=== PATIENT | female | born 1940 | race Caucasian/White ===

== ENCOUNTER 2018-10-02 12:50 | Inpatient (IN) ==
[2018-10-02 16:05] LABS: Basophils # 0.1 10*3/uL (0.0-0.2); Basophils % 0.7 % (0.0-0.8); Eosinophils # 0.2 10*3/uL (0.0-0.87); Eosinophils % 3.3 % (0.00-10.9); Hematocrit 27.3 VOL% (35.7-47.0); Hemoglobin 8.7 GM/DL (12.0-16.0); Immature Granulocytes % 0.4 %; Immature Granulocytes Absolute 0.03 #; Lymphocytes # 1.3 10*3/uL (1.4-4.0); Lymphocytes % 17.7 % (21.3-54.2); Mean Corpuscular HGB Conc 31.9 GM/DL (32-36); Mean Corpuscular Volume 91.9 FL (87-102); Mean Platelet Volume 9.4 FL (9.6-12.0); Monocytes % 11.7 % (1.7-12.7); Neutrophils % 66.2 % (38.7-73.9); Platelet Count 428 T/CUMM (130-400); Red Blood Count 2.97 MC/CUMM (3.8-5.5); Red Cell Distribution Width 15.7 % (9.3-17.3); White Blood Count 7.2 T/CUMM (4-12)
[2018-10-02 16:23] LABS: Alanine Aminotransferase 16 U/L (13-56); Albumin 2.6 G/DL (3.4-5.0); Alkaline Phosphatase 66 U/L (45-117); Aspartate Amino Transferase 22 U/L (0-37); Bilirubin,Total < 0.39 MG/DL (0.2-1.0); Blood Urea Nitrogen 20 MG/DL (7-18); Glucose 90 MG/DL (74-106); Total Protein 7.5 G/DL (6.4-8.3)
[2018-10-02 19:29] LABS: Apearance,Urine CLEAR (Clear); Bilirubin,Urine Negative (Negative); Blood, Urine Negative (Negative); Glucose,Urine (UA) Negative (Negative); Hyaline Casts,Urine 1 /LPF (0-3); Ketones,Urine Negative (Negative); Mucus,Urine Occasional /LPF (Occasional); Nitrite,Urine Negative (Negative); Protein,Urine Negative; RBC,Urine <1 /HPF (0-4); Squamous Epithelial Cell,Urine Occasional /HPF (0-10); Urine Color Yellow (Yellow); Urine Specific Gravity 1.013 (1.001-1.035); Urine Urobilinogen < 2.0 EU/DL (0.2-1.0); WBC,Urine 1 /HPF (0-6)
[2018-10-02] MEDS ORDERED: traZODone 50 MG TABLET PO PRN (19:56)
[2018-10-02] MEDS ORDERED: diphenhydrAMINE CAP 25 MG CAPSULE PO PRN (19:56)
[2018-10-02] MEDS ORDERED: DOCUSATE SODIUM 100 MG CAPSULE PO PRN (19:56)
[2018-10-02] MEDS ORDERED: ONDANSETRON 4 MG/2 ML VIAL IV PRN (19:56)
[2018-10-02] MEDS ORDERED: ATORVASTATIN 20 MG TABLET PO SCH (20:30)
[2018-10-02] MEDS ORDERED: ENOXAPARIN 40 MG/0.4 ML SYRINGE SUBCUT SCH (21:00)
[2018-10-02] MEDS ORDERED: KETOROLAC 30 MG/1 ML VIAL ONE (21:14)
[2018-10-02] MEDS: KETOROLAC 15 MG/1 ML VIAL IV PRN (21:17)
[2018-10-02] MEDS: SODIUM CHLORIDE 0.9% 1,000 ML IV SCH (23:35)
[2018-10-02] MEDS: MELOXICAM 7.5 MG TABLET PO SCH (23:52)
[2018-10-02] MEDS: POLYCARBOPHIL 625 MG TABLET PO SCH (23:52)
[2018-10-02] MEDS: rOPINIRole 1 MG TABLET PO SCH (23:52)
[2018-10-02] MEDS: cefTRIAXone 1,000 MG in SYRINGE 1 EACH IV SCH (23:53)
[2018-10-02] MEDS: POLYETHYLENE GLYCOL POWDER 17 GM PACK PO SCH (23:55)
[2018-10-03] MEDS: VANCOMYCIN INJ 1,000 MG in SODIUM CHLORIDE 0.9% 250 ML IV SCH ×2 (00:11→19:56)
[2018-10-03 04:43] LABS: Basophils % 0.8 % (0.0-0.8); Eosinophils # 0.2 10*3/uL (0.0-0.87); Hematocrit 25.6 VOL% (35.7-47.0); Hemoglobin 7.7 GM/DL (12.0-16.0); Immature Granulocytes % 0.4 %; Immature Granulocytes Absolute 0.02 #; Lymphocytes # 1.1 10*3/uL (1.4-4.0); Lymphocytes % 20.4 % (21.3-54.2); Mean Corpuscular HGB Conc 30.1 GM/DL (32-36); Mean Corpuscular Volume 93.4 FL (87-102); Mean Platelet Volume 9.5 FL (9.6-12.0); Monocytes % 14.7 % (1.7-12.7); Neutrophils % 59.7 % (38.7-73.9); Platelet Count 339 T/CUMM (130-400); Red Blood Count 2.74 MC/CUMM (3.8-5.5); Red Cell Distribution Width 15.7 % (9.3-17.3); White Blood Count 5.3 T/CUMM (4-12)
[2018-10-03] MEDS: SODIUM CHLORIDE 0.9% 1,000 ML IV SCH ×2 (04:56→13:33)
[2018-10-03 05:17] LABS: Alanine Aminotransferase 14 U/L (13-56); Albumin 2.1 G/DL (3.4-5.0); Alkaline Phosphatase 59 U/L (45-117); Aspartate Amino Transferase 19 U/L (0-37); Bilirubin,Total < 0.39 MG/DL (0.2-1.0); Blood Urea Nitrogen 18 MG/DL (7-18); Calcium 8.1 MG/DL (8.5-10.1); Glucose 85 MG/DL (74-106); HDL Cholesterol 29 MG/DL (40-60); Osmolality,Calculated 288.7 MOS/KG (273-304); Risk Ratio 2.83; Total Protein 6.1 G/DL (6.4-8.3); Triglycerides 84 MG/DL (2-150); VLDL CHOLESTEROL 16.8 MG/DL
[2018-10-03] MEDS ORDERED: SODIUM CHLORIDE 0.9% 1,000 ML IV PRN (07:34)
[2018-10-03] MEDS ORDERED: POTASSIUM CHLORIDE RIDER 10 MEQ in PREMIX 1 EACH IV PRN (07:39)
[2018-10-03] MEDS ORDERED: MAGNESIUM SULF RIDER 2 GM in PREMIX 1 EACH IV PRN (07:39)
[2018-10-03] MEDS ORDERED: MAGNESIUM SULF RIDER 4 GM in PREMIX 1 EACH IV PRN (07:39)
[2018-10-03] MEDS ORDERED: FUROSEMIDE 20 MG/2 ML VIAL IV ONE (07:40)
[2018-10-03] MEDS: HEPARIN 5,000 UNIT/1 ML VIAL SUBCUT SCH ×2 (10:08→15:42)
[2018-10-03] MEDS: PANTOPRAZOLE 40 MG TABLET PO SCH (10:17)
[2018-10-03] MEDS: MULTIVITAMIN (CENTRUM) TABLET PO SCH (10:18)
[2018-10-03] MEDS ORDERED: LIDOCAINE 1% 20 ML VIAL ONE (10:55)
[2018-10-03] MEDS: rOPINIRole 1 MG TABLET PO SCH ×2 (13:27→21:43)
[2018-10-03] MEDS ORDERED: POLYETHYLENE GLYCOL POWDER 17 GM PACK PO SCH (18:00)
[2018-10-03] MEDS: METOPROLOL SUCCINATE XL 25 MG TABLET PO SCH (18:14)
[2018-10-03] MEDS: KETOROLAC 15 MG/1 ML VIAL IV PRN (18:16)
[2018-10-03] MEDS: POLYCARBOPHIL 625 MG TABLET PO SCH (21:42)
[2018-10-03] MEDS: ASCORBIC ACID 500 MG TABLET PO SCH (21:42)
[2018-10-03] MEDS: POLYETHYLENE GLYCOL POWDER 17 GM PACK PO SCH ×2 (21:42→21:54)
[2018-10-03] MEDS: MELOXICAM 7.5 MG TABLET PO SCH (21:42)
[2018-10-03] MEDS: cefTRIAXone 1,000 MG in SYRINGE 1 EACH IV SCH (21:43)
[2018-10-04] MEDS: HEPARIN 5,000 UNIT/1 ML VIAL SUBCUT SCH ×4 (00:50→23:00)
[2018-10-04] MEDS: SODIUM CHLORIDE 0.9% 1,000 ML IV SCH ×5 (03:53→20:44)
[2018-10-04 04:55] LABS: Basophils # 0.1 10*3/uL (0.0-0.2); Basophils % 0.9 % (0.0-0.8); Eosinophils # 0.3 10*3/uL (0.0-0.87); Eosinophils % 5.3 % (0.00-10.9); Hematocrit 29.7 VOL% (35.7-47.0); Hemoglobin 9.6 GM/DL (12.0-16.0); Immature Granulocytes % 0.5 %; Immature Granulocytes Absolute 0.03 #; Lymphocytes # 1.2 10*3/uL (1.4-4.0); Lymphocytes % 22.2 % (21.3-54.2); Mean Corpuscular HGB Conc 32.3 GM/DL (32-36); Mean Corpuscular Volume 91.1 FL (87-102); Mean Platelet Volume 9.7 FL (9.6-12.0); Monocytes % 13.8 % (1.7-12.7); Neutrophils % 57.3 % (38.7-73.9); Platelet Count 367 T/CUMM (130-400); Red Blood Count 3.26 MC/CUMM (3.8-5.5); Red Cell Distribution Width 15.5 % (9.3-17.3); White Blood Count 5.5 T/CUMM (4-12)
[2018-10-04 05:15] LABS: Osmolality,Calculated 292.6 MOS/KG (273-304)
[2018-10-04 05:17] LABS: % Iron Saturation 33.3 % (18-50); Ferritin 60.8 ng/ml (8-252)
[2018-10-04 05:28] LABS: Folate 7.1 NG/ML (5.4-24.0)
[2018-10-04] MEDS ORDERED: LIDOCAINE 1% 20 ML VIAL ONE (06:29)
[2018-10-04] MEDS ORDERED: BUPIVACAINE MPF 0.25% /EPI 30 ML VIAL ONE (06:29)
[2018-10-04] MEDS ORDERED: PROPOFOL 200 MG/20 ML VIAL IV ONE (07:42)
[2018-10-04] MEDS ORDERED: SEVOFLURANE 1 UNIT/15 MINUTE INH ONE (07:42)
[2018-10-04] MEDS ORDERED: ONDANSETRON 4 MG/2 ML VIAL ONE ×2 (07:43→08:12)
[2018-10-04] MEDS ORDERED: fentaNYL 100 MCG/2 ML VIAL ONE (07:43)
[2018-10-04] MEDS: HYDROmorphone 2 MG/1 ML VIAL IV PRN ×2 (07:46→07:51)
[2018-10-04] MEDS ORDERED: HYDROmorphone 2 MG/1 ML VIAL ONE (07:48)
[2018-10-04] MEDS ORDERED: ONDANSETRON 4 MG/2 ML VIAL IV PRN (08:17)
[2018-10-04] MEDS: MULTIVITAMIN (CENTRUM) TABLET PO SCH (09:25)
[2018-10-04] MEDS: METOPROLOL SUCCINATE XL 25 MG TABLET PO SCH (09:27)
[2018-10-04] MEDS: ASCORBIC ACID 500 MG TABLET PO SCH ×2 (09:27→20:20)
[2018-10-04] MEDS: PANTOPRAZOLE 40 MG TABLET PO SCH (09:28)
[2018-10-04] MEDS ORDERED: PROMETHAZINE 25 MG/1 ML VIAL IM PRN (12:05)
[2018-10-04] MEDS: VANCOMYCIN INJ 1,000 MG in SODIUM CHLORIDE 0.9% 250 ML IV SCH (13:26)
[2018-10-04] MEDS: rOPINIRole 1 MG TABLET PO SCH ×2 (13:30→20:20)
[2018-10-04] MEDS: KETOROLAC 15 MG/1 ML VIAL IV PRN (15:45)
[2018-10-04] MEDS: POLYCARBOPHIL 625 MG TABLET PO SCH (20:20)
[2018-10-04] MEDS: MELOXICAM 7.5 MG TABLET PO SCH (20:20)
[2018-10-04] MEDS: CYANOCOBALAMIN 100 MCG TABLET PO SCH (20:20)
[2018-10-04] MEDS ORDERED: POLYETHYLENE GLYCOL POWDER 17 GM PACK PO SCH (21:00)
[2018-10-04] MEDS: POLYETHYLENE GLYCOL POWDER 17 GM PACK PO SCH (22:47)
[2018-10-04] MEDS: cefTRIAXone 1,000 MG in SYRINGE 1 EACH IV SCH (22:56)
[2018-10-05] MEDS: SODIUM CHLORIDE 0.9% 1,000 ML IV SCH ×2 (04:51→12:47)
[2018-10-05 05:14] LABS: Basophils % 0.5 % (0.0-0.8); Eosinophils # 0.3 10*3/uL (0.0-0.87); Eosinophils % 5.1 % (0.00-10.9); Hematocrit 28.3 VOL% (35.7-47.0); Hemoglobin 8.9 GM/DL (12.0-16.0); Immature Granulocytes % 0.3 %; Immature Granulocytes Absolute 0.02 #; Lymphocytes # 1.2 10*3/uL (1.4-4.0); Lymphocytes % 19.1 % (21.3-54.2); Mean Corpuscular HGB Conc 31.4 GM/DL (32-36); Mean Corpuscular Volume 93.1 FL (87-102); Mean Platelet Volume 9.9 FL (9.6-12.0); Monocytes % 12.6 % (1.7-12.7); Neutrophils % 62.4 % (38.7-73.9); Platelet Count 339 T/CUMM (130-400); Red Blood Count 3.04 MC/CUMM (3.8-5.5); Red Cell Distribution Width 15.9 % (9.3-17.3)
[2018-10-05 05:41] LABS: Calcium 7.6 MG/DL (8.5-10.1); Osmolality,Calculated 291.6 MOS/KG (273-304)
[2018-10-05] MEDS: VANCOMYCIN INJ 1,000 MG in SODIUM CHLORIDE 0.9% 250 ML IV SCH (08:39)
[2018-10-05] MEDS: HEPARIN 5,000 UNIT/1 ML VIAL SUBCUT SCH (08:42)
[2018-10-05] MEDS: METOPROLOL SUCCINATE XL 25 MG TABLET PO SCH (08:43)
[2018-10-05] MEDS: CYANOCOBALAMIN 100 MCG TABLET PO SCH (08:43)
[2018-10-05] MEDS: MULTIVITAMIN (CENTRUM) TABLET PO SCH (08:43)
[2018-10-05] MEDS: ASCORBIC ACID 500 MG TABLET PO SCH (08:43)
[2018-10-05] MEDS: PANTOPRAZOLE 40 MG TABLET PO SCH (08:44)
[2018-10-05] MEDS: KETOROLAC 15 MG/1 ML VIAL IV PRN (11:15)
[2018-10-05 11:42] VITALS: BP 149/75
[2018-10-05] MEDS: rOPINIRole 1 MG TABLET PO SCH (13:26)
== END 2018-10-05 13:30 | disposition home health service (06) | DRG 908 ==
LOC: N.ED 12:50 → N.EDINP 19:56 → N.3E 22:19
PROVIDERS: ADMIT Family Medicine; ATTEND Family Medicine